=== PATIENT | female | born 1975 | race Caucasian/White ===

== ENCOUNTER 2016-09-10 15:52 | Emergency (ER) | payer MEDICAID ==
[2011-09-03 06:29] VITALS: BMI 26.6
[2016-09-10 17:29] LABS: APPEARANCE CLEAR (CLEAR); BILIRUBIN NEGATIVE (NEGATIVE); COLOR STRAW (YELLOW); GLUCOSE NEGATIVE (NEGATIVE); KETONE NEGATIVE (NEGATIVE); LEUKOCYTE ESTERASE NEGATIVE (NEGATIVE); NITRITE NEGATIVE (NEGATIVE); PROTEIN NEGATIVE (NEGATIVE); UROBILINOGEN NORMAL (NORMAL)
== END 2016-09-10 18:35 | disposition home or self-care (01) ==
LOC: D.ER 15:52
PROVIDERS: Nurse Practitioner Family
DX: M54.5 Low back pain (principal); S39.012A Strain of muscle, fascia and tendon of lower back, initial encounter; M54.30 Sciatica, unspecified side

== ENCOUNTER 2017-05-14 15:39 | Emergency (ER) | payer MEDICAID | END 2017-05-14 21:23 | disposition home or self-care (01) | LOC: D.ER 15:39 | DX: M54.16 Radiculopathy, lumbar region (principal); F17.200 Nicotine dependence, unspecified, uncomplicated ==

== ENCOUNTER 2018-07-25 13:02 | Emergency (ER) | payer SELFPAY ==
[~2018-07-25] VITALS: Ht 175.3 cm; Wt 68.2 kg
[2018-07-25 13:09] VITALS: BP 130/82; Ht 175.3 cm; Wt 68.2 kg
[2018-07-25] MEDS ORDERED: HYDROCODON-ACE1 EAC2 PO (13:11)
[2018-07-25] MEDS ORDERED: NEURONTIN600 MG (13:11)
== END 2018-07-25 15:05 | disposition left against medical advice (07) ==
LOC: D.ER 13:02
DX: R10.2 Pelvic and perineal pain (principal)

== ENCOUNTER 2019-01-16 11:30 | Emergency (ER) | payer SELFPAY ==
[~2019-01-16] VITALS: Ht 175.3 cm; Wt 72.7 kg
[~2019-01-16 11:30] MED LIST: HYDROCODON-ACE1 EAC2 PO; NEURONTIN600 MG
[2019-01-16 11:43] VITALS: Ht 175.3 cm; Wt 72.7 kg
[2019-01-16] MEDS ORDERED: ULTRAM50 MG PO (13:06)
[2019-01-16] MEDS ORDERED: ZANAFLEX4 MG PO (13:06)
[2019-01-16 13:52] VITALS: BP 129/80
== END 2019-01-16 13:53 | disposition home or self-care (01) ==
LOC: D.ER 11:30
DX: S16.1XXA Strain of muscle, fascia and tendon at neck level, initial encounter (principal); W17.89XA Other fall from one level to another, initial encounter; S00.83XA Contusion of other part of head, initial encounter; F17.210 Nicotine dependence, cigarettes, uncomplicated